=== PATIENT | male | born 1990 | race Caucasian/White ===

== ENCOUNTER 2021-09-21 14:56 | Emergency (ER) | payer BC ==
[~2021-09-21] VITALS: Ht 182.9 cm; Wt 80.7 kg
--- NOTE | 2021-09-21 15:35 | NUR ---
RECEVED pt 30 yrs male came from home c/o rt flank pain started today no n/v excamine by DR. AGUERO blood drow by lab UA sent to lab EKG done
--- NOTE | 2021-09-21 16:00 | NUR ---
to ct scan of abdomin stable vs and condition
[2021-09-21 16:20] LABS: *BILIRUBIN,URIN NEGATIVE (NEGATIVE); *BLOOD, URINE NEGATIVE (NEGATIVE); *CLARITY,URINE CLEAR (CLEAR); *COLOR,URINE YELLOW (YELLOW); *KETONES,URINE NEGATIVE (NEGATIVE); *UROBILINOGEN,URINE 0.2 E.U./dl (NORMAL); LEUKOCYTE ESTERASE ,URINE NEGATIVE (NEGATIVE); NITRITE, URINE NEGATIVE (NEGATIVE); UGLUCOSE NEGATIVE (NEGATIVE)
[2021-09-21 16:35] LABS: HEMATOCRIT 39.4 % (36.7-47.1); MEAN CORPUSCULAR HEMOGLOBIN 30.8 uug (23.8-33.4); MEAN CORPUSCULAR VOLUME 88.2 fL (73.0-96.2); PLATELET COUNT (AUTO) 209 K/uL (152-348)
[2021-09-21 16:54] LABS: POTASSIUM 4.6 mmol/L (3.5-5.1)
[2021-09-21 16:55] LABS: BILIRUBIN,DIRECT 0.1 mg/dL (0.0-0.2); BILIRUBIN,TOTAL 0.4 mg/dL (0.2-1.0)
--- NOTE | 2021-09-21 17:30 | NUR ---
DR. AGUERO at bed side spook with pt about lab result and plan of care
--- NOTE | 2021-09-21 17:35 | NUR ---
Dineses abdominal pain D/C INSTRACTION given to pt fully and verblized understood d/c home stable vs and condtion
[2021-09-21 17:42] VITALS: BP 114/75
== END 2021-09-21 17:40 | disposition home or self-care (01) ==
LOC: ER 15:09
DX: K90.49 Malabsorption due to intolerance, not elsewhere classified (principal); R10.11 Right upper quadrant pain; Z80.0 Family history of malignant neoplasm of digestive organs; R00.1 Bradycardia, unspecified
CPT/HCPCS: 36415; 70030-TC; 83690; 85025; 93005; A4663